=== PATIENT | male | born 1960 | race Caucasian/White ===

== ENCOUNTER 2021-09-27 09:39 | Emergency (ER) | payer MEDICARE ==
[2021-09-27 10:24] LABS: HEMOGLOBIN 15.5 gm/dl (14.0-17.5); RED BLOOD COUNT 5.23 M/UL (4.20-5.50); WHITE BLOOD COUNT 4.6 K/UL (4.5-11.0)
[2021-09-27 10:47] LABS: BUN/CREATININE RATIO 9 (0-10)
== END 2021-09-27 16:05 | disposition home or self-care (01) ==
LOC: ER1 09:39
PROVIDERS: Family Medicine
DX: U07.1 COVID-19 (principal); Z23 Encounter for immunization; E78.5 Hyperlipidemia, unspecified; R00.0 Tachycardia, unspecified
CPT/HCPCS: 0240U; 71045; 80053; 81001; 83605; 83690; 85025; 87040; 93005; 99284; M0222